=== PATIENT | female | born 1975 | race African-American/Black ===

== ENCOUNTER 2020-12-12 18:41 | Inpatient (IN) | payer OTHER ==
[~2020-12-12] VITALS: Ht 157.5 cm; Wt 59.9 kg
[~2020-12-12 18:41] MED LIST: HYDR-4346 PO; IBUP-2029 PO; LORA-250 PO; NITR-87 MT; POLY119P18 MT
[2020-12-12] MEDS ORDERED: SODIUM CHLORIDE 0.9% 1000ML BAG (SEPSIS BOLUS) IV ONE (20:30)
[2020-12-12 21:18] LABS: BASOPHILS % 0.3 % (0.0-2.0); EOSINOPHILS % 0.2 % (0.0-5.0); HEMATOCRIT. 23.6 % (36.0-48.0); HEMOGLOBIN. 7.7 g/dL (12.0-16.0); LYMPHOCYTES % 11.1 % (20.0-50.0); MEAN CORPUSCULAR HEMOGLOBIN 30.6 pg (28.0-32.0); MEAN CORPUSCULAR VOLUME 93.6 fL (81.0-99.0); MEAN PLATELET VOLUME 8.9 fl (7.4-10.4); MONOCYTES % 5.4 % (2.0-8.0); PLATELET 182 x1000/uL (130-400); RED BLOOD CELL COUNT 2.52 mill/uL (4.2-5.4); RED CELL DISTRIBUTION WIDTH 19.6 % (11.6-14.6)
[2020-12-12 21:21] LABS: CHLORIDE 111 mEq/L (98-107)
[2020-12-12 21:32] LABS: HCG SCREEN NEGATIVE
[2020-12-12] MEDS ORDERED: PANTOPRAZOLE SODIUM 40 MG/VIAL IV ONE (22:00)
[2020-12-12 22:10] LABS: CLARITY URINE CLEAR (CLEAR); COLOR URINE YELLOW (YELLOW); KETONES URINE NEGATIVE (NEGATIVE); LEUKOCYTE ESTERASE URINE TRACE (NEGATIVE); NITRITE URINE NEGATIVE (NEGATIVE); OCCULT BLOOD URINE 1+ (NEGATIVE); PH URINE 5.5 (4.5-8.0); PROTEIN URINE NEGATIVE (NEGATIVE); SPECIFIC GRAVITY URINE 1.018 (1.005-1.030); UROBILINOGEN URINE 0.2 E.U./dL (0.2-1.0)
[2020-12-12] MEDS ORDERED: CEFTRIAXONE 1 G PREMIX 50 ML IV ONE (22:30)
[2020-12-12] MEDS ORDERED: AZITHROMYCIN 500 MG in DEXT 5% WATER 250 ML IV ONE (22:30)
[2020-12-13] VITALS (13 sets, daily range): BP systolic 73–105; BP diastolic 32–60
[2020-12-13] MEDS ORDERED: METRONIDAZOLE 500MG TABLET PO ONE
[2020-12-13 00:58] LABS: INR 1.1; PARTIAL THROMBOPLASTIN TIME < 21.0 sec (23.4-31.0); PROTHROMBIN TIME 11.5 sec (9.6-11.0)
[2020-12-13] MEDS ORDERED: CEFTRIAXONE 1 G PREMIX 50 ML IV SCH (01:45)
[2020-12-13] MEDS ORDERED: NON FORMULARY PATIENT HOME MED XX SCH (02:00)
[2020-12-13] MEDS: DEXT 5%/0.45% NACL KCL 20MEQ/L 1,000 ML IV SCH ×3 (03:49→21:16)
[2020-12-13] MEDS ORDERED: PANTOPRAZOLE 80 MG in SODIUM CHLORIDE 0.9% 100 ML IV SCH (04:00)
[2020-12-13] MEDS ORDERED: *PATIENT'S OWN MEDICATION STORAGE XX SCH (05:00)
[2020-12-13 07:49] LABS: PROTHROMBIN TIME 11.2 sec (9.6-11.0)
[2020-12-13] MEDS: PANTOPRAZOLE SODIUM 40 MG/VIAL IV SCH ×2 (09:36→21:16)
[2020-12-13 11:41] LABS: CHLORIDE 115 mEq/L (98-107)
[2020-12-13] MEDS: SUCRALFATE 1G TABLET PO SCH ×3 (12:17→21:16)
[2020-12-13 12:32] LABS: BASOPHILS % 0.6 % (0.0-2.0); HEMATOCRIT. 21.8 % (36.0-48.0); HEMOGLOBIN. 7.2 g/dL (12.0-16.0); LYMPHOCYTES % 21.7 % (20.0-50.0); MEAN CORPUSCULAR HEMOGLOBIN 29.5 pg (28.0-32.0); MEAN CORPUSCULAR VOLUME 89.2 fL (81.0-99.0); MONOCYTES % 10.5 % (2.0-8.0); NEUTROPHILS % 66.2 % (40.0-76.0); PLATELET 154 x1000/uL (130-400); RED BLOOD CELL COUNT 2.45 mill/uL (4.2-5.4); RED CELL DISTRIBUTION WIDTH 21.1 % (11.6-14.6)
[2020-12-13] MEDS ORDERED: MIDODRINE HCL 5MG TABLET PO NR (17:30)
[2020-12-13] MEDS: FERROUS SULFATE 325MG TABLET PO SCH (17:32)
[2020-12-13] MEDS: CEFTRIAXONE 1,000 MG in DEXTROSE 5% WATER 50 ML IV SCH (21:16)
[2020-12-13] MEDS ORDERED: HYDROCODONE/ACETAMINOPHEN 5/325MG TABLET PO PRN (21:30)
[2020-12-13] MEDS ORDERED: ONDANSETRON HCL 4MG/2ML INJ IV PRN (21:30)
[2020-12-13] MEDS ORDERED: ACETAMINOPHEN 325MG TABLET PO PRN (21:30)
[2020-12-13 23:35] LABS: HEMATOCRIT 25.1 % (36.0-48.0); HEMOGLOBIN 8.4 g/dL (12.0-16.0)
[2020-12-13] MEDS: ZOLPIDEM TARTRATE 5MG TABLET PO PRN (23:51)
[2020-12-14] VITALS (10 sets, daily range): BP systolic 84–112; BP diastolic 45–58
[2020-12-14] MEDS: DEXT 5%/0.45% NACL KCL 20MEQ/L 1,000 ML IV SCH ×3 (03:11→21:27)
[2020-12-14 04:14] LABS: BASOPHILS % 0.8 % (0.0-2.0); EOSINOPHILS % 1.6 % (0.0-5.0); HEMATOCRIT. 23.3 % (36.0-48.0); HEMOGLOBIN. 7.8 g/dL (12.0-16.0); LYMPHOCYTES % 37.5 % (20.0-50.0); MEAN CORPUSCULAR HEMOGLOBIN 29.1 pg (28.0-32.0); MEAN CORPUSCULAR VOLUME 87.5 fL (81.0-99.0); MEAN PLATELET VOLUME 8.9 fl (7.4-10.4); MONOCYTES % 9.9 % (2.0-8.0); NEUTROPHILS % 50.2 % (40.0-76.0); PLATELET 157 x1000/uL (130-400); RED BLOOD CELL COUNT 2.67 mill/uL (4.2-5.4); RED CELL DISTRIBUTION WIDTH 18.2 % (11.6-14.6)
[2020-12-14 04:28] LABS: CHLORIDE 116 mEq/L (98-107)
[2020-12-14 04:34] LABS: PHOSPHORUS 2.8 mg/dL (2.5-4.9)
[2020-12-14] MEDS: SUCRALFATE 1G TABLET PO SCH ×4 (05:48→21:27)
[2020-12-14] MEDS: FERROUS SULFATE 325MG TABLET PO SCH ×3 (08:47→18:01)
[2020-12-14] MEDS: ASCORBIC ACID 500 MG TABLET PO SCH (08:47)
[2020-12-14] MEDS: MIDODRINE HCL 5MG TABLET PO SCH ×3 (08:47→18:00)
[2020-12-14] MEDS: PANTOPRAZOLE SODIUM 40 MG/VIAL IV SCH ×2 (10:05→21:27)
[2020-12-14] MEDS ORDERED: POTASSIUM CHLORIDE 20MEQ/PACKET PO SCH (10:15)
[2020-12-14] MEDS: CEFTRIAXONE 1,000 MG in DEXTROSE 5% WATER 50 ML IV SCH (21:27)
[2020-12-14 21:45] LABS: HEMATOCRIT 35.6 % (36.0-48.0); HEMOGLOBIN 11.9 g/dL (12.0-16.0)
[2020-12-14] MEDS: ZOLPIDEM TARTRATE 5MG TABLET PO PRN (23:08)
[2020-12-15] VITALS: BP 94/42
[2020-12-15] MEDS: DEXT 5%/0.45% NACL KCL 20MEQ/L 1,000 ML IV SCH ×3 (03:35→20:03)
[2020-12-15 04:00] VITALS: BP 88/49
[2020-12-15] MEDS: SUCRALFATE 1G TABLET PO SCH ×4 (05:48→20:31)
[2020-12-15 06:54] LABS: BASOPHILS % 0.7 % (0.0-2.0); EOSINOPHILS % 1.9 % (0.0-5.0); HEMATOCRIT. 32.8 % (36.0-48.0); HEMOGLOBIN. 11.2 g/dL (12.0-16.0); LYMPHOCYTES % 36.9 % (20.0-50.0); MEAN CORPUSCULAR HEMOGLOBIN 29.5 pg (28.0-32.0); MEAN CORPUSCULAR VOLUME 86.6 fL (81.0-99.0); MEAN PLATELET VOLUME 9.4 fl (7.4-10.4); MONOCYTES % 9.6 % (2.0-8.0); NEUTROPHILS % 50.9 % (40.0-76.0); PLATELET 218 x1000/uL (130-400); RED BLOOD CELL COUNT 3.79 mill/uL (4.2-5.4); RED CELL DISTRIBUTION WIDTH 17.8 % (11.6-14.6)
[2020-12-15 06:57] LABS: CHLORIDE 114 mEq/L (98-107)
[2020-12-15 07:05] LABS: PHOSPHORUS 3.5 mg/dL (2.5-4.9)
[2020-12-15 08:00] VITALS: BP 135/55
[2020-12-15] MEDS: PANTOPRAZOLE SODIUM 40 MG/VIAL IV SCH ×2 (08:36→20:31)
[2020-12-15] MEDS: FERROUS SULFATE 325MG TABLET PO SCH ×3 (08:36→17:40)
[2020-12-15] MEDS: ASCORBIC ACID 500 MG TABLET PO SCH (08:37)
[2020-12-15] MEDS: MIDODRINE HCL 5MG TABLET PO SCH ×3 (08:37→17:40)
[2020-12-15 12:00] VITALS: BP 120/62
[2020-12-15 16:00] VITALS: BP 102/63
[2020-12-15 20:00] VITALS: BP 108/51
[2020-12-15] MEDS: CEFTRIAXONE 1,000 MG in DEXTROSE 5% WATER 50 ML IV SCH (20:31)
[2020-12-16] VITALS: BP 100/42
[2020-12-16] MEDS: ZOLPIDEM TARTRATE 5MG TABLET PO PRN (00:02)
[2020-12-16 04:00] VITALS: BP 89/53
[2020-12-16] MEDS: DEXT 5%/0.45% NACL KCL 20MEQ/L 1,000 ML IV SCH ×2 (04:45→12:30)
[2020-12-16] MEDS: SUCRALFATE 1G TABLET PO SCH ×2 (05:57→11:57)
[2020-12-16 06:50] LABS: EOSINOPHILS % 1.6 % (0.0-5.0); HEMOGLOBIN. 10.3 g/dL (12.0-16.0); LYMPHOCYTES % 32.4 % (20.0-50.0); MEAN CORPUSCULAR VOLUME 86.9 fL (81.0-99.0); MEAN PLATELET VOLUME 8.8 fl (7.4-10.4); MONOCYTES % 10.9 % (2.0-8.0); NEUTROPHILS % 54.1 % (40.0-76.0); PLATELET 258 x1000/uL (130-400); RED BLOOD CELL COUNT 3.57 mill/uL (4.2-5.4); RED CELL DISTRIBUTION WIDTH 18.5 % (11.6-14.6)
[2020-12-16 07:09] LABS: PHOSPHORUS 4.5 mg/dL (2.5-4.9)
[2020-12-16 08:00] VITALS: BP 104/58
[2020-12-16] MEDS: PANTOPRAZOLE SODIUM 40 MG/VIAL IV SCH (08:28)
[2020-12-16] MEDS: ASCORBIC ACID 500 MG TABLET PO SCH (08:29)
[2020-12-16] MEDS: MIDODRINE HCL 5MG TABLET PO SCH ×2 (08:29→12:31)
[2020-12-16] MEDS: FERROUS SULFATE 325MG TABLET PO SCH ×2 (08:29→12:30)
[2020-12-16] MEDS ORDERED: MAGNESIUM OXIDE 400MG TABLET PO SCH (10:45)
[2020-12-16 12:00] VITALS: BP 107/56
[2020-12-16 14:59] VITALS: BP 107/56
== END 2020-12-16 16:00 | disposition home or self-care (01) | DRG 48 ==
LOC: ER 18:41 → 5WST 22:29 → EDBEDREQ 22:34 → EDBEDREQTM 22:34 → EDBEDREQSVC 22:34 → ENRESERV 22:51
PROVIDERS: ADMIT Internal Medicine; ATTEND Internal Medicine
PROC: 30233N1 Transfusion of Nonautologous Red Blood Cells into Peripheral Vein, Percutaneous Approach (ICD-10-PCS; principal; 2020-12-13)
DX: G90.8 Other disorders of autonomic nervous system (principal); R57.9 Shock, unspecified; E43 Unspecified severe protein-calorie malnutrition; D64.9 Anemia, unspecified; E87.8 Other disorders of electrolyte and fluid balance, not elsewhere classified; K25.4 Chronic or unspecified gastric ulcer with hemorrhage; F17.210 Nicotine dependence, cigarettes, uncomplicated; F12.90 Cannabis use, unspecified, uncomplicated; F41.9 Anxiety disorder, unspecified; K29.50 Unspecified chronic gastritis without bleeding; F10.20 Alcohol dependence, uncomplicated; Z20.822 Contact with and (suspected) exposure to COVID-19; N92.0 Excessive and frequent menstruation with regular cycle; Z87.440 Personal history of urinary (tract) infections; Z79.899 Other long term (current) drug therapy; D72.829 Elevated white blood cell count, unspecified
CPT/HCPCS: 36415; 71045; 80048; 80053; 81003; 83605; 83735; 83880; 84100; 84145; 84484; 84703; 85014; 85018; 85025; 85384; 86850; 86900; 86920; 87426; 93005; 96365; 99291; C9113; J0456; J0696; J7030; J7050; J7060; P9016; P9021